=== PATIENT | male | born 1955 | race Caucasian/White ===

== ENCOUNTER 2017-02-03 08:34 | Day surgery (SDC) | payer MEDICARE, OTHER ==
[2017-02-03] VITALS (9 sets, daily range): BP systolic 126–145; BP diastolic 77–90; PULSE 55–60; RESP 11–29; Ht 170.2 cm; Wt 81.8 kg
[~2017-02-03] VITALS: Ht 170.2 cm; Wt 81.8 kg
[~2017-02-03 08:34] MED LIST: ASPI325T4 PO; CARV12.579 PO; CRES10 PO; ISOS60TA36 PO
[2017-02-03] MEDS ORDERED: ROSU20TA27 PO (09:23)
[2017-02-03] MEDS ORDERED: CHOL10009 PO (09:24)
[2017-02-03] MEDS ORDERED: CLOP75TA28 PO (09:24)
[2017-02-03 09:32] LABS: ADD SCAN DIFF NO
--- NOTE | 2017-02-03 09:32 | RADRPT ---
PROCEDURE: XR Chest. CLINICAL INDICATION: Chest pain, preoperative TECHNIQUE: Single frontal view of the chest was obtained. COMPARISON: 11/01/2012 FINDINGS: The heart is within normal limits. The thoracic aorta is calcified. The patient is status post ster notomy. The lungs are clear. There is no pleural effusion or pneumothorax. RPTAT: AA IMPRESSION: No acute disease. Calcified aorta consistent with atherosclerotic disease. .Jose J Hobbs MD, MD Date Time Electronically viewed and signed by .Jose J Hobbs MD, on 02/03/2017 09:31 .S/
[2017-02-03 09:41] LABS: BASOPHIL # 0.1 10^3/ul (0.0-0.1); BASOPHILS % 0.8 % (0.0-2.0); EOSINOPHILS # 0.3 10^3/ul (0.0-0.5); EOSINOPHILS % 3.8 % (0.0-7.0); HEMATOCRIT 39.2 % (42.0-52.0); HEMOGLOBIN 13.5 g/dl (14.0-18.0); LYMPHOCYTES # 2.6 10^3/ul (0.8-2.9); LYMPHOCYTES % 39.3 % (15.0-51.0); MEAN CORPUSCULAR HEMOGLOBIN 31.1 pg (29.0-33.0); MEAN CORPUSCULAR HGB CONC 34.4 g/dl (32.0-37.0); MEAN CORPUSCULAR VOLUME 90.3 fl (82.0-101.0); MEAN PLATELET VOLUME 9.6 fl (7.4-10.4); MONOCYTE # 0.4 10^3/ul (0.3-0.9); MONOCYTES % 6.2 % (0.0-11.0); NEUTROPHIL # 3.3 10^3/ul (1.6-7.5); NEUTROPHILS % 49.7 % (39.0-77.0); PLATELET COUNT 207 10^3/UL (140-415); RED BLOOD COUNT 4.34 10^6/ul (4.70-6.10); RED CELL DISTRIBUTION WIDTH 13.1 % (11.5-14.5); WHITE BLOOD COUNT 6.7 10^3/ul (4.8-10.8)
[2017-02-03 09:52] LABS: INR 0.98
[2017-02-03 09:53] LABS: PARTIAL THROMBOPLASTIN TIME 29.8 Sec (25.0-35.0)
[2017-02-03 09:54] LABS: CHOL/HDL RATIO 6.4 RATIO
[2017-02-03 10:00] LABS: CALCIUM 9.7 mg/dl (8.4-10.2); CREATININE 1.04 mg/dl (0.61-1.24); POTASSIUM 4.6 mmol/L (3.5-5.1)
[2017-02-03] MEDS ORDERED: IODIXANOL LOCM 100 ML BTL ONE ×2 (10:48→12:03)
[2017-02-03] MEDS ORDERED: LIDOCAINE 1% (MDV) 20 ML INJ ONE (10:48)
[2017-02-03] MEDS ORDERED: MIDAZOLAM 1 MG/ML 2 ML INJ ONE (10:49)
[2017-02-03] MEDS ORDERED: FENTAnyl 50 MCG/ML VIAL ONE (10:49)
[2017-02-03] MEDS ORDERED: IODIXANOL LOCM 50 ML BTL ONE (12:21)
[2017-02-03] MEDS ORDERED: SOD CHLORIDE 0.9% 1,000 ML IV SCH (12:44)
[2017-02-03] MEDS ORDERED: AL HYDROX/MG HYDROX/SIMETH 30 ML CUP PO PRN (13:00)
[2017-02-03] MEDS ORDERED: morphine 2 MG INJ IV PRN (13:00)
[2017-02-03] MEDS ORDERED: ONDANSETRON 4 MG INJ IV PRN (13:00)
[2017-02-03] MEDS ORDERED: ACETAMINOPHEN 325 MG TAB PO PRN (13:00)
--- NOTE | 2017-02-03 13:25 | CARRPT ---
DATE OF PROCEDURE: 02/03/2017 TYPE OF PROCEDURE: 1. Left heart catheterization. 2. Coronary angiography. 3. Bypass graft angiography, including KLINE arterial graft. 4. Femoral angiography. 5. Perclose closure device to right femoral artery. ATTENDING PHYSICIAN: Valentina Kumari MD REFERRING PHYSICIAN: Dr. Brayden Moore TYPE OF ANESTHESIA: Conscious and local. INDICATION: Preoperative for lithotripsy, possible cystoscopy, with positive stress test findings f or anterior and inferior ischemia. BRIEF HISTORY: Mr. Judd is a 61-year-old male with a history of hypertension, dyslipidemia, and c oronary artery disease, status post coronary artery bypass graft surgery, who presents for preoperat zonia evaluation for lithotripsy due to renal stones. The patient underwent a cardiac stress test, re vealing positive ischemia in the anterior and inferior distribution. Given these findings, the roberta ent was referred to me and presents today in order to undergo left heart catheterization to assess f or the possibility of significant obstructive coronary artery disease leading to his positive stress test in a preoperative state. PROCEDURE: After informed consent was obtained, the patient was brought to the [facility] cardiac catheterization lab, where his right groin was prepped and draped in the usual ster ile fashion. Lidocaine 2% was infiltrated into the right groin in order to achieve adequate anesthe gracie. With modified Seldinger technique, the right femoral artery was cannulated and a 6-[place] yady rial sheath was placed. A 6-[place] JL4 cardiac catheter was used to cannulate the left main coronar y ostium. With contrast injection multiple views of the left coronary arterial system were obtained . JL4 was removed over a guidewire and a JR4 was used to cannulate the right coronary arterial osti um. With contrast injection, multiple views of the right coronary system were obtained. The JR4 wa s then additionally used to cannulate the subclavian and place in the KLINE, after which with contras t injection, multiple views of the KLINE were obtained. The catheter was removed and a 6-[place] pigt ail was passed across the aortic valve into the left ventricle. Left ventricular end-diastolic pres sure was measured. 20 mL of contrast were injected, opacifying the left ventricle. The pigtail cat heter was then pulled back across the aortic valve to assess for significant gradient, which there w as not, and placed in the aortic root, after which aortic root angiography was ascertained to assess for any further unidentified grafts, which there were not. Subsequently the pigtail was removed an d final angiographic images of the right femoral arterial insertion site was then obtained, revealin g the sheath to be well placed in the right common femoral artery. Subsequently the catheter was re moved and a 6-[place] Perclose device was used to , completing the procedure. There were no n oted complications. FINDINGS: 1. Left main is 4 mm, with a distal 90% stenosis. The circumflex appears to be flush occluded at i ts ostium. The LAD proximally is a 2-mm vessel and shortly after its takeoff becomes 100% occluded just at the takeoff of a reasonable sized diagonal. The right coronary artery proximally is a 3-mm vessel and shortly after its takeoff becomes 100% occluded and there is some right bridging collater als that has caused some distal flow to faintly appear towards the distal portion of the RCA and pos sible PDA. 2. Left ventriculogram revealed the left ventricular ejection fraction mildly depressed, approximat mary 45%, with mild anterolateral hypokinesis and inferior hypokinesis. Left ventricular diastolic p ressure is 7. post LV gram, no significant aortic stenosis by gradient, 1+ mitral regurgitati on. 3. Bypass graft angiography revealed the patient to have a widely patent KLINE arterial graft, suppl valery a reasonable sized distal LAD, which then provides collateral flow to the patient's circumflex distribution and some faint collateral flow towards the right coronary artery as well. 4. Subclavian angiography revealed no significant subclavian stenosis prior to takeoff of the KLINE. 5. Femoral angiography revealed the patient to have the sheath well placed in the common femoral ar jose. 6. Aortic root angiography: This revealed no other unidentified grafts and a possible stump. TOTAL FLUOROSCOPY TIME: 5.1 minutes. TOTAL CONTRAST: 80 mL. IMPRESSION: 1. Left main and 3-vessel obstructive [place] coronary artery disease. 2. Widely patent KLINE to LAD. 3. No other identified patent bypass grafts. 4. Mildly depressed left ventricular systolic function, with wall motion as above. 5. Normal left heart filling pressures. 6. No significant aortic stenosis by gradient. 7. 1+ mitral regurgitation. RECOMMENDATIONS: In light of the procedure findings at this time would: 1. Maximize medical management. 2. Aggressive risk factor reduction. 3. Patient has no contraindications to proceeding to lithotripsy at this time, but due to baseline disease, would be at moderate risk for cardiovascular events. 4. Patient will be readmitted to the same day surgery center, with probable discharge later in the afternoon. Dictated By: VALENTINA STAHL/MACKENZIE Conf#: [id number] DID#: [id number] CC: BRAYDEN MOORE MD;*End*
--- NOTE | 2017-02-03 16:42 | RADRPT ---
Vent Rate: 65 bpm RR Interval: 0 msec [place] Interval: 220 msec QRS Duration: 94 msec QT Interval: 414 msec QTC Interval: 430 msec P-R-T [place]: 49 - 4 - 49 degrees Sinus rhythm with 1st degree AV block Otherwise normal ECG Electronically Signed By: Víctor Kumari [id number]
== END 2017-02-03 16:30 | disposition home or self-care (01) ==
LOC: SDS 08:34
PROVIDERS: ATTEND Internal Medicine
DX: I25.10 Atherosclerotic heart disease of native coronary artery without angina pectoris (principal); I10 Essential (primary) hypertension; E11.9 Type 2 diabetes mellitus without complications; E78.5 Hyperlipidemia, unspecified
CPT/HCPCS: 71010; 80048; 80061; 85025; 85610; 85730; 93005; 93459; C1760; C1769; C1887; J1644; J2250; J3010; Q9967